=== PATIENT | female | born 1985 | race Caucasian/White ===

== ENCOUNTER 2018-05-06 16:31 | Emergency (ER) | payer OTHER, MEDICAID ==
[~2018-05-06] VITALS: Ht 165.1 cm; Wt 53.1 kg
[2018-05-06 16:35] VITALS: BP 122/72; PULSE 99; RESP 20; Ht 165.1 cm; Wt 53.1 kg
[2018-05-06] MEDS ORDERED: IBUPROFEN 800 MG TAB PO ONE (17:00)
[2018-05-06] MEDS ORDERED: IBUP-1542 PO (17:33)
[2018-05-06] MEDS ORDERED: CEPH-443 PO (17:33)
--- NOTE | 2018-05-06 17:36 | ERD ---
ER Documentation Chief Complaint Chief Complaint Complains of a burning on urination x 2 days HPI This is a 32-year-old female who presents emergency department complaining of pain with urination for the past 4-5 days. She states that when she goes she only was able to go a small amount. States she also has some menstrual cramps and is currently on her menstrual cycle. Denies any fevers or chills, vomiting, back pain. States she has not taken medication for the pain. ROS All systems reviewed and are negative except as per history of present illness. Medications Home Meds Active Scripts Ibuprofen* (Motrin*) 600 Mg Tab, 600 MG PO Q6, #30 TAB Prov:JULI HOWE PA-C 05/06/18 Cephalexin* (Keflex*) 500 Mg Capsule, 500 MG PO BID for 7 Days, CAP Prov:JULI HOWE PA-C 05/06/18 PMhx/Soc Denies any past medical history Medical and Surgical Hx: pt denies Medical Hx, pt denies Surgical Hx Hx Alcohol Use: No Hx Substance Use: No Hx Tobacco Use: No Smoking Status: Never smoker FmHx Family History: No diabetes, No coronary disease Physical Exam Vitals Vital Signs Date Temp Pulse Resp B/P (MAP) Pulse Ox O2 O2 Flow FiO2 Time Delivery Rate 05/06/18 98.3 99 20 122/72 100 16:35 (89) Physical Exam Const: No acute distress Head: Atraumatic Eyes: Normal Conjunctiva ENT: Normal External Ears, Nose and Mouth. Neck: Full range of motion. No meningismus. Resp: Clear to auscultation bilaterally Cardio: Regular rate and rhythm, no murmurs Abd: Soft, mild suprapubic tenderness. No tenderness McBurney's. Non d istended. Normal bowel sounds Skin: No petechiae or rashes Back: No midline or flank tenderness Ext: No cyanosis, or edema Neur: Awake and alert Psych: Normal Mood and Affect Results 24 hrs Laboratory Tests Test 05/06/18 17:00 05/06/18 17:10 POC Beta HCG, Qualitative NEGATIVE Urine Color RED Urine Clarity CLOUDY Urine pH 5.0 Urine Specific [place] 1.024 Urine Ketones 1+ mg/dL Urine Nitrite NEGATIVE mg/dL Urine Bilirubin NEGATIVE mg/dL Urine Urobilinogen NEGATIVE mg/dL Urine Leukocyte Esterase 1+ Elizabeth/ul Urine Microscopic RBC > 182 /HPF Urine Microscopic WBC > 182 /HPF Urine Squamous Epithelial Cells MODERATE /HPF Urine Bacteria FEW /HPF Urine Mucus FEW /HPF Urine Yeast (Budding) MODERATE /HPF Urine Hemoglobin 3+ mg/dL Urine Glucose NEGATIVE mg/dL Urine Total Protein 2+ mg/dl Current Medications Medications Dose Sig/Ny Start Time Status Last (Trade) Ordered Route PRN Stop Time Admin Dose Reason Admin Ibuprofen 800 mg ONCE ONCE 05/06/18 DC 05/06/18 (Motrin) PO 17:00 17:16 05/06/18 17:01 Procedures/MDM This a 32-year-old female who presents emergency department today complaining of pain with urination for the past 4-5 days. Patient is afebrile and otherwise well-appearing pain on physical exam she has some mild suprapubic tenderness. I did obtain a UA. UA shows 1+ leukocyte esterase greater than 182 red blood cells greater 182 white blood cells. Patient currently on her menstrual cycle. Patient symptoms at this time consistent with symptomatic dysuria and I will treat patient for urinary tract infection. She was given Motrin here in the emergency department. She will be given a prescription for Keflex for home. Patient is afebrile and otherwise well-appearing. She denies any fevers, vomiting or back pain of low suspicion for pyelonephritis or nephrolithiasis. Test is negative. Patient was requesting first dose antibiotics here. She was given one Keflex. She will be discharged home with Keflex and Motrin for home. She was also given Motrin here in the emergency department. Symptoms at this time consistent with urinary tract infection. Low suspicion for pyelonephritis, nephrolithiasis, sepsis or severe acute bacterial infection. Patient is afebrile and otherwise well-appearing. She has no back pain, fevers or abdominal pain of low suspicion for acute surgical abdomen. Departure Diagnosis: Primary Impression: UTI (urinary tract infection) Urinary tract infection type: site unspecified Hematuria presence: with hematuria Qualified Codes: N39.0 - Urinary tract infection, site not specified; R31.9 - Hematuria, unspecified Condition: Fair Patient Instructions: Understanding Urinary Tract Infections (UTIs) Referrals: your PCP Additional Instructions: Call your primary care doctor TOMORROW for an appointment during the next 1-2 days.See the doctor sooner or return here if your condition worsens before your appointment time. Take antibiotics as prescribed. Stay well-hydrated with plenty of clear fluids. Take Tylenol Motrin for pain. Return for any worsening of symptoms, fevers, back pain or vomiting. JULI HOWE PA-C May 06, 2018 17:36
[2018-05-06] MEDS ORDERED: CEPHALEXIN 500 MG CAP PO ONE (18:00)
== END 2018-05-06 17:42 | disposition home or self-care (01) ==
LOC: FTE 16:31
DX: N39.0 Urinary tract infection, site not specified (principal)
CPT/HCPCS: 81001; 81025; 99283